=== PATIENT | female | born 1975 | race Caucasian/White ===

== ENCOUNTER 2017-11-01 23:49 | Emergency (ER) | END 2017-11-02 03:34 | disposition home or self-care (01) ==

== ENCOUNTER 2019-03-22 01:13 | Emergency (ER) | payer SELFPAY ==
[~2019-03-22] VITALS: Ht 154.9 cm; Wt 84.0 kg
[2019-03-22 01:20] VITALS: BP 143/91; PULSE 87; RESP 18; Ht 154.9 cm; Wt 84.0 kg
== END 2019-03-22 03:19 | disposition left against medical advice (07) ==
LOC: E/R 01:13
DX: Z53.21 Procedure and treatment not carried out due to patient leaving prior to being seen by health care provider (principal)